=== PATIENT | male | born 1945 | race Caucasian/White ===

== ENCOUNTER 2017-06-14 01:52 | Observation (INO) | payer MEDICARE, OTHER ==
[~2017-06-14] VITALS: Ht 185.4 cm; Wt 111.1 kg
[2017-06-14] MEDS ORDERED: ATORVASTATIN CA40 MG PO (02:01)
[2017-06-14] MEDS ORDERED: COREG25 MG PO (02:02)
[2017-06-14] MEDS ORDERED: NORVASC10 MG PO (02:02)
[2017-06-14] MEDS ORDERED: PRINIVIL20 MG PO (02:02)
[2017-06-14 02:13] LABS: ABSOLUTE BASOPHILS 0.1 thou/uL (0.0-0.2); ABSOLUTE EOSINOPHILS 0.4 thou/uL (0.0-0.7); ABSOLUTE LYMPHOCYTES 3.2 thou/uL (0.8-5.3); ABSOLUTE MONOCYTES 0.6 thou/uL (0.0-1.2); ABSOLUTE NEUTROPHILS 3.7 thou/uL (1.6-8.1); BASOPHILS 0.9 %; EOSINOPHILS 5.1 %; HEMATOCRIT 42.8 % (42.0-52.0); HEMOGLOBIN 14.5 gm/dL (14.0-18.0); LYMPHOCYTES 40.2 %; MCH 28.5 pg (26.0-34.0); MCV 83.8 fL (80.0-100.0); MPV 6.7 fl. (7.2-11.1); NUCLEATED RBCS 0 /100WBC; PLATELET COUNT* 241 thou/uL (150-400); POLYS 45.8 %; RBC 5.11 mil/uL (4.50-6.00); RDW-CV 14.5 % (10.5-14.5)
[2017-06-14 02:25] LABS: ANION GAP 6 mmol/L (7-16); BUN 25 mg/dL (7-18); CALCIUM 9.2 mg/dL (8.5-10.1); CHLORIDE 101 mmol/L (98-107); CO2 33 mmol/L (21-32); CREATININE 1.7 mg/dL (0.6-1.3); GLUCOSE 144 mg/dL (70-99); POTASSIUM 3.1 mmol/L (3.5-5.1); SODIUM 140 mmol/L (136-145)
[2017-06-14 02:34] LABS: INR 1.1; PROTIME 10.3 Seconds (9.20-11.50)
[2017-06-14 02:35] LABS: ALBUMIN 3.8 g/dL (3.4-5.0); ALKALINE PHOSPHATASE 78 U/L (46-116); LIPASE 227 U/L (73-393); NT-PRO BRAIN NAT PEPTIDE 121 pg/mL (<300); SGOT 23 U/L (15-37); SGPT 70 U/L (30-65); TOTAL BILIRUBIN 0.5 mg/dL (<0.1-1.0); TOTAL PROTEIN 7.3 g/dL (6.4-8.2); TROPONIN-I LEVEL <0.06 ng/mL (<0.06)
[2017-06-14 03:27] LABS: URINE BILIRUBIN NEGATIVE (Negative); URINE BLOOD NEGATIVE (Negative); URINE CLARITY CLEAR; URINE COLOR STRAW; URINE GLUCOSE-RANDOM NEGATIVE (Negative); URINE KETONES NEGATIVE (Negative); URINE LEUKOCYTES-REFLEX NEGATIVE (Negative); URINE NITRITE-REFLEX NEGATIVE (Negative); URINE PROTEIN NEGATIVE (Negative); URINE UROBILINOGEN 0.2 E.U./dl (0.2-1.0)
[2017-06-14 04:03] VITALS: BP 145/91
--- NOTE | 2017-06-14 07:00 | NUR ---
PATIENT IS NOT IN DISTRESS, PATIENT DENIES PAIN.
[2017-06-14 08:00] VITALS: BP 134/85
[2017-06-14 08:56] LABS: ANION GAP 9 mmol/L (7-16); BUN 26 mg/dL (7-18); CALCIUM 9.5 mg/dL (8.5-10.1); CHLORIDE 102 mmol/L (98-107); CHOLESTEROL 161 mg/dL (<200); CO2 29 mmol/L (21-32); CREATININE 1.6 mg/dL (0.6-1.3); GLUCOSE 137 mg/dL (70-99); HDL CHOLESTEROL 35 mg/dL (>40); LDL CHOLESTEROL 95 mg/dL (<100); SERUM ASSESSMENT Clear; SODIUM 140 mmol/L (136-145); TC:HDL 4.6 Ratio (Not establshd); TRIGLYCERIDE 157 mg/dL (<150); VLDL 31 mg/dL (<40)
--- NOTE | 2017-06-14 09:55 | NUR ---
CM SPOKE TO THE PATIENT TO DISCUSS HOME SITUATION, DISCHARGE PLANNING, AND TO INFORM OF THE ROLE OF CM. PATIENT ALERT, ORIENTED, AND INDEPENDENT WITH ADL'S. 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 PATIENT RESIDES AT HOME WITH SPOUSE. PATIENT USES 0 DME. PATIENT HAS A HX OF HH, BUT COULD NOT RECALL THE NAME. PATIENT HAS NO HX OF SNF, AND PLANS TO RETURN HOME AT D/C. CM WILL REMAIN AVAILABLE TO ASSIST AND FOLLOW NEEDED.
--- NOTE | 2017-06-14 10:54 | EKG ---
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 : 1945 Requested By: Anette Ordaz Order Number: [id number] MD: Earle Fine Measurements Intervals [place] Rate: 82 P: -5 OK: 169 QRS: -11 QRSD: 146 T: -34 QT: 425 QTc: 497 Interpretive Statements Sinus rhythm Right bundle branch block Inferior infarct, age indeterminate Baseline wander in lead(s) V2 No previous ECG available for comparison Electronically Signed On 06-14-2017 10:54:12 CDT by Earle Fine [email or web address] <ELECTRONICALLY SIGNED> By: Earle Fine MD, [facility] 06/14/17 1054 0156 0156 Earle Fine MD, [facility] /EPI
[2017-06-14 11:30] VITALS: BP 135/66
[2017-06-14] MEDS ORDERED: PANTOPRAZOLE SO40 M1 PO (11:52)
--- NOTE | 2017-06-14 13:16 | NUR ---
ASSUMED RESPONSIBILITY OF PT THIS AM PT IS ALERT AND ORIENTED X4 UP AD JULIETH EUNICE ON THE MONITOR PLAN TO DO STRESS TEST OUTPATIENT WAITING ON VQ SCAN IF LOW PROBABILITY MAY DC HOME PULSES STRONG PERIPHERALLY 2+ HEART HEALTHY DIET STARTED WITHOUT ISSUES CALL LIGHT IN REACH NO COMPLAINTS AT THIS TIME
[2017-06-14 14:52] VITALS: BP 135/66
--- NOTE | 2017-06-14 15:47 | 2DMMODE ---
[place] [address] 2 D/M-MODE ECHOCARDIOGRAM Name: JOY GORDILLO Room: [address] Mary Nayak#: [id number] Admission: 06/14/17 Attend Phys: Gurjit Charles, Discharge: Date of : 41 Date of Service: 06/14/17 1547 Report #: [id number] THIS REPORT FOR: //name// APPROVED REPORT Study performed: 06/14/2017 14:17:05 EXAM: Comprehensive 2D, Doppler, and color-flow Echocardiogram Patient Location: Bedside BSA: 2.32 HR: 76 bpm BP: 145/91 mmHg Other Information Study Quality: Good Indications Chest Pain 2D Dimensions LVEF(%): 70.70 (>50%) IVSd: 11.95 (7-11mm) LVOT Diam: 20.83 (18-24mm) LVDd: 49.17 mm PWd: 9.14 (7-11mm) Ascending Ao: 34.29 (22-36mm) LVDs: 29.40 (25-40mm) Aortic Root: 32.17 mm Corcroan's LVEF: 70.70 % Volumes Left Atrial Volume (Systole) LA ESV Index: 22.30 mL/m2 Aortic Valve AoV Peak Kervin.: 1.37 m/s AO Peak Gr.: 7.50 mmHg LVOT Max P.81 mmHg AO Mean Gr.: 4.61 mmHg LVOT Mean P.76 mmHg LVOT Max V: 1.21 m/s AO V2 VTI: 27.85 cm LVOT Mean V: 0.76 m/s MICHAEL (VTI): 3.10 cm2 LVOT V1 VTI: 25.30 cm Mitral Valve E/A Ratio: 1.17 MV Decel. Time: 223.77 ms MV E Max Kervin.: 0.71 m/[place] [address] 2 D/M-MODE ECHOCARDIOGRAM Name: JOY GORDILLO Room: [address] MSonya#: [id number] Admission: 06/14/17 Attend Phys: Gurjit Charles, Discharge: Date of : 41 Date of Service: 06/14/17 1547 Report #: [id number] MV PHT: 64.89 ms MVA (PHT): 3.39 cm2 TDI E/Lateral E': 5.92 E/Medial E': 7.89 Medial E' Kervin.: 0.09 m/s Lateral E' Kervin.: 0.12 m/s Pulmonary Valve PV Peak Kervin.: 0.85 m/s PV Peak Gr.: 2.91 mmHg Tricuspid Valve RAP Estimate: 5.00 mmHg TR Peak Gr.: 9.79 mmHg RVSP: 14.79 mmHg PA Pressure: 14.79 mmHg Left Ventricle The left ventricle is normal size. There is normal LV segmental wall motion. There is normal left ventricular wall thickness. Left ventricular systolic function is normal. The left ventricular ejection fraction is within the normal range. LVEF is 60-65%. The left ventricular diastolic function is normal. Right Ventricle Right ventricle is mildly dilated. The right ventricular systolic function is normal. Atria The left atrium size is normal. Right atrium is mildly dilated. Aortic Valve The aortic valve is normal in structure. No aortic regurgitation is present. There is no aortic valvular stenosis. Mitral Valve The mitral valve is normal in structure. Trace mitral regurgitation. No evidence of mitral valve stenosis. Tricuspid Valve The tricuspid valve is normal in structure. Trace tricuspid regurgitation. Pulmonic Valve Pulmonic valve is not well visualized. There is no pulmonic [place] [address] 2 D/M-MODE ECHOCARDIOGRAM Name: JOY GORDILLO Room: [address]#: [id number] Admission: 06/14/17 Attend Phys: Gurjit Charles, Discharge: Date of : 41 Date of Service: 06/14/17 1547 Report #: [id number] Great Vessels The aortic root is normal in size. IVC is normal in size and collapses with >50% inspiration Pericardium There is no pericardial effusion. <Conclusion> LVEF is 60-65%. Left ventricular systolic function is normal. The left ventricular ejection fraction is within the normal range. <ELECTRONICALLY SIGNED> By: Earle Fine MD, FACC 06/14/17 1547 1547 1547 Earle Fine MD, FACC /INF
--- NOTE | 2017-06-14 16:09 | NUR ---
PT DISCHARGED WITH INSTRUCTIONS GIVEN AND THREAD SINGER AND IV DISCONTINUED NO CONCERNS FROM PATIENT OR
--- NOTE | 2017-06-15 14:44 | CON ---
[facility] [address] [place] [address] CONSULTATION Name: JOY GORDILLO Room: [address] Mary Nayak#: [id number] Admission: 06/14/17 Attend Phys: Gurjit Charles MD Discharge: 06/14/17 Date of : 41 Report #: [id number] THIS REPORT FOR: //name// CC: MANPREET Charles DATE OF SERVICE: 06/14/2017 HISTORY OF PRESENT ILLNESS: The patient is a 71-year-old white male who I was asked to see in the hospital today after he complained of chest pain. The patient has no previous history of heart disease. He has had no previous cardiac evaluation. He does not exercise on regular basis. He states yesterday afternoon he was at home when he felt a sharp stabbing pain on the left side of his chest, lasted a few seconds and resolved. However, he then woke up at 1:00 in the morning again with a sharp stabbing pain on the left side of his chest, lasted a few seconds and resolved. He is not related to exertion or meals. There was no associated shortness of breath, diaphoresis, or nausea. He denied any recent trauma to his chest. There is no rash. The pain is not worse with any movement of the arm. He denies exertional dyspnea, palpitations, syncope, or peripheral edema. He was admitted and I was asked to see him for further evaluation and treatment. PAST MEDICAL HISTORY: Significant for multiple procedures including bilateral carpal tunnel, bilateral knee replacement, bilateral shoulder surgery, cataract extraction, hypertension, diabetes, and glucose intolerance. MEDICATIONS: Consists of amlodipine, atorvastatin, carvedilol, and lisinopril. ALLERGIES: He has no drug allergies, although in the past METFORMIN gave him diarrhea. FAMILY HISTORY: His brother had a heart attack. SOCIAL HISTORY: He is . His is actually a patient of mine who has cardiomyopathy. They live in [place]. 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 No smoking, has rare can of beer. REVIEW OF SYSTEMS: No history of stroke or asthma. He has had dyspepsia in the past. No liver disease. No kidney disease. He had a skin cancer removed in the past. No psychiatric illness. PHYSICAL EXAMINATION: GENERAL: Revealed an elderly male, lying in bed, he appeared in no acute distress. VITAL SIGNS: He had a blood pressure of 130/80, pulse 70, [place] [address] CONSULTATION Name: JOY GORDILLO Madhavi Room: [address]#: [id number] Admission: 06/14/17 Attend Phys: Gurjit Charles MD Discharge: 06/14/17 Date of : 41 Report #: [id number] HEENT: He was anicteric. Conjunctivae were pink. Mucous members were moist. NECK: Veins do not distended. No carotid bruits. Neck was supple. CHEST: Clear to auscultation. HEART: Regular rate and rhythm. No significant murmur. ABDOMEN: Soft, nontender. EXTREMITIES: Had no edema. Dorsalis pedis pulse 2+ bilaterally. SKIN: Warm, dry. NEUROLOGIC: Nonfocal. LYMPH: No adenopathy. MUSCULOSKELETAL: No joint effusion. He apparently had an ECG last night at 1:50 a.m. that showed a sinus rhythm, possible previous inferior infarction, age indeterminate and a right bundle branch block. His workup, he had portable chest x-ray done last night, normal heart size, tortuous aorta. He had CT scan of the chest without contrast that showed a cyst on the kidney, fatty liver, tortuous aorta, coronary calcifications. Lab work, sodium 140, creatinine 1.6, glucose 137. Liver function studies were normal. Troponins all 0.06. Cholesterol 161, triglyceride 157, HDL 35, LDL of 95. White blood cell count 8.0, hemoglobin 14.5. IMPRESSION AND RECOMMENDATIONS: 1. Chest pain. The patient has risk factors for coronary artery disease. His pain is atypical for angina. Since he is on a beta nicolas and has an abnormal resting ECG, recommend Lexiscan Cardiolite to rule out ischemia. 2. Hypertension. The patient has been on calcium nicolas, beta nicolas and LIBERTY inhibitor. 3. Hyperlipidemia. The patient has been on a statin drug. 4. Glucose intolerance. The patient is no longer on metformin. 5. Chronic kidney disease. 6. Degenerative joint disease. The patient has had multiple joint surgeries. 7. Previous removal of a skin cancer. <ELECTRONICALLY SIGNED> By: Earle Fine MD, FACC 06/15/17 1444 1132 1300Davimadhavi Fine MD, FACC /nt
== END 2017-06-14 16:00 | disposition home or self-care (01) ==
LOC: M.ERS 01:52 → M.2W 03:42 → M.TBA-ER 03:42 → M.2W 03:42 → M.ERS 04:05 → M.2W 04:16
PROVIDERS: Emergency Medicine; Internal Medicine; ADMIT Internal Medicine
DX: I20.9 Angina pectoris, unspecified (principal); N18.9 Chronic kidney disease, unspecified; I12.9 Hypertensive chronic kidney disease with stage 1 through stage 4 chronic kidney disease, or unspecified chronic kidney disease; E11.22 Type 2 diabetes mellitus with diabetic chronic kidney disease; R94.31 Abnormal electrocardiogram [ECG] [EKG]; E78.00 Pure hypercholesterolemia, unspecified; R79.1 Abnormal coagulation profile; R79.89 Other specified abnormal findings of blood chemistry; I71.2 Thoracic aortic aneurysm, without rupture; M19.90 Unspecified osteoarthritis, unspecified site; E74.39 Other disorders of intestinal carbohydrate absorption; Z98.890 Other specified postprocedural states; Z87.891 Personal history of nicotine dependence; Z72.89 Other problems related to lifestyle